=== PATIENT | female | born 1970 | race Caucasian/White ===

== ENCOUNTER 2019-04-02 18:30 | Emergency (ER) | payer BC ==
[~2019-04-02] VITALS: Ht 160 cm; Wt 93.0 kg
[2019-04-02 21:05] VITALS: BP 164/91
== END 2019-04-02 21:26 | disposition home or self-care (01) ==
LOC: ED 21:20
DX: R10.84 Generalized abdominal pain (principal); R11.2 Nausea with vomiting, unspecified; E86.0 Dehydration; I10 Essential (primary) hypertension
CPT/HCPCS: 36415; 74021; 80053; 83690; 85025; 96361; 96374; 96375; 99284; J1170; J2405; J7030